=== PATIENT | female | born 1950 | race Caucasian/White ===

== ENCOUNTER → 2016-12-29 | Outpatient (CLI) | payer OTHER ==
[~2016-12-29] MED LIST: AMLO-114 PO; ASPEC81 PO; B-CO-25 PO; CALC1CAP24 PO; CLC100 PO; CRAN1CAP15 PO; DIPH1TAB87 PO; HYDR25TA5 PO; LISI10TA PO; LVMI INJ; METF-384 PO; METO50TA7 PO; MULT-506 PO; NRN100 PO; NVLGI/PEN; POLY150C4 PO; PRAV20TA PO; RALO60TA30 PO; SACC250C11 PO; SERT-234 PO; VITA400C3 PO; ZNT/300 PO
== END | disposition home or self-care (01) ==
LOC: C.LABSPEC 17:12
PROVIDERS: ATTEND Urology
DX: N39.0 Urinary tract infection, site not specified (principal)

== ENCOUNTER → 2017-07-06 | Outpatient (CLI) | payer OTHER ==
[~2017-07-06] MED LIST changes: +OPTIRAY 320 IV PRN
--- NOTE | 2017-07-06 13:08 | DIAGNOSTIC IMAGING REPORT ---
CT KIDNEY (ABDOMEN) COMBO CT DOSE: 1926.81 mGycm CLINICAL HISTORY: CLEAR CELL RENAL CELL CARCINOMA TECHNIQUE: Unenhanced images were obtained through the upper abdomen. The patient was then scanned in a dynamic helical fashion during intravenous administration of 93 cc Optiray 320. 5 minute delayed images were also acquired. A dose lowering technique was utilized adhering to the principles of ALARA. COMPARISON STUDY: 05/12/2016 FINDINGS: The lung bases reveal mild dependent atelectasis/scarring. There is mild hepatic steatosis. There is a stable 8 mm hypodensity within the right hepatic lobe. The gallbladder surgically absent. No pancreatic masses are visualized. There is a stable 2 cm left adrenal nodule. The right adrenal gland appears normal. There is no evidence of abdominal aortic dilatation. There is a 12 mm lower pole left renal cyst. There is a 36 mm left renal cyst. There is a tiny 5 mm left renal angiomyolipoma. No left renal calculi are visualized. No right renal calculi are visualized. There is stable postsurgical changes involving the lower pole of the right kidney. There is a 1 cm upper pole right renal hypodensity. This has a precontrast attenuation value of 38, and a postcontrast attenuation of 41. This likely represents a hyperdense cyst. There is no evidence of abdominal aortic dilatation. There is no evidence of pathologic adenopathy. No collecting system lesions are visualized. IMPRESSION: 1. Interval resection of the previously identified solid lower pole right renal mass. Postsurgical changes involve the lower pole the right kidney. This examination serves as a postsurgical baseline 2. Stable hyperdense upper pole 1 cm right renal cyst 3. Stable left renal cysts. Stable tiny left renal angiomyolipoma 4. Stable 2 cm left adrenal nodule Electronically signed by: Edgar Breen M.D. 07/06/2017 1:06 PM Dictated Date/Time: 07/06/2017 12:58 PM
== END | disposition home or self-care (01) ==
LOC: C.CTS 11:51
PROVIDERS: ATTEND Urology
DX: C64.9 Malignant neoplasm of unspecified kidney, except renal pelvis (principal); N28.1 Cyst of kidney, acquired; E27.9 Disorder of adrenal gland, unspecified